=== PATIENT | female | born 1975 | race Caucasian/White ===

== ENCOUNTER 2020-04-14 04:26 | Emergency (ER) | payer SELFPAY ==
[~2020-04-14] VITALS: Ht 170.2 cm; Wt 61.3 kg
--- NOTE | 2020-04-14 04:48 | PHYS DOC ---
Adult General Chief Complaint Chief Complaint: SKIN RASH/ABSCESS HPI HPI Patient is a 44-year-old female with a past medical history of several allergies who presents with a chief complaint of concern of allergic reaction. States that about 3 hours ago she began to have a red rash all over her arms, legs and chest that itched. States she has had something similar in the past. States the only thing that she has taken that she thinks is new is Augmentin for a skin infection, but states she is taking penicillin several times in the past. Denies any new soaps/detergents/make-up/lotions. Denies any new pets or living space. States that she was not sure she should come to the emergency department, and upon arrival to the emergency department all of her symptoms had resolved. States that shortly before coming to the emergency department the redness in her skin had completely ceased and really was not itching anymore but just wanted to be sure. Denies headache, changes in vision, chest pain, shortness of breath, wheezing, abdominal pain, nausea, vomiting, diarrhea. Denies any alcohol or drug use. Review of Systems Review of Systems Review of systems otherwise unremarkable except noted in HPI. Physical Exam Physical Exam Constitutional: Well developed, well nourished, no acute distress, non-toxic appearance. [] HENT: Normocephalic, atraumatic, bilateral external ears normal, oropharynx moist, no oral exudates, nose normal. [] Eyes: conjunctiva normal, no discharge. [] Neck: Normal range of motion, no tenderness, supple, no stridor. [] Cardiovascular:Heart rate regular rhythm, no murmur [] Lungs & Thorax: Bilateral breath sounds clear to auscultation [] Abdomen: soft, no tenderness, no masses, no pulsatile masses. [] Skin: Warm, dry, no erythema, no rash. [] Extremities: No tenderness, no cyanosis, no clubbing, ROM intact, no edema. [] Neurologic: Alert and oriented X 3, normal motor function, normal sensory function, no focal deficits noted. [] Psychologic: Affect normal, judgement normal, mood normal. [] EKG EKG [] Radiology/Procedures Radiology/Procedures [] Heart Score Risk Factors: Risk Factors: DM, Current or recent (<one month) smoker, HTN, HLP, family history of CAD, obesity. Risk Scores: Risk Factors: DM, Current or recent (<one month) smoker, HTN, HLP, family history of CAD, obesity. Course & Med Decision Making Course & Med Decision Making Patient is a 44-year-old female who presents with concern for allergic reaction. Vital signs not concerning. Physical exam noted above. Upon presentation to the emergency department patient stated that all of her symptoms had resolved just before coming to the ED but since she was on the way she came anyway. In the emergency department patient has no signs of urticaria, respiratory distress or wheezing, abdominal pain, nausea, vomiting, diarrhea. Also has no signs of oropharyngeal swelling or erythema. Discussed allergies and allergic reactions with patient and advised to follow-up with primary care physician as soon as she can, give recommendation on medications and things to look out for at home and advised to come back to the ED with new or concerning symptoms. Patient grateful, verbalized understanding and agreed with plan of discharge. [] Dragon Disclaimer Dragon Disclaimer This electronic medical record was generated, in whole or in part, using a voice recognition dictation system. Departure Departure: Impression: Primary Impression: Allergic reaction Disposition: 01 DC HOME SELF CARE/HOMELESS Condition: GOOD Referrals: PCP,NO (PCP) Patient Instructions: Allergies, Generic MARJORIE MONAHAN MD Apr 14, 2020 04:48
[2020-04-14 05:02] VITALS: BP 126/71
== END 2020-04-14 05:02 | disposition home or self-care (01) ==
LOC: ER 04:26
DX: R21 Rash and other nonspecific skin eruption (principal); T36.0X5A Adverse effect of penicillins, initial encounter; Y92.89 Other specified places as the place of occurrence of the external cause
CPT/HCPCS: 99282